=== PATIENT | male | born 1975 | race Caucasian/White ===

== ENCOUNTER 2020-09-20 19:04 | Emergency (ER) | payer SELFPAY ==
--- NOTE | 2020-09-20 19:35 | ER Document Report ---
ED Medical Screen (RME) - General Chief Complaint: Fever Stated Complaint: FEVER,BODY ACHES/CRAMPING/IV DRUG USER Time Seen by Provider: 09/20/20 19:31 Primary Care Provider: CRISTINA GAO MD [Primary Care Provider] - Follow up as needed Mode of Arrival: Ambulatory Information source: Patient Notes: 44-year-old male presented to ED for complaint of body aches fever intermittently cough congestion that comes and goes for the last couple weeks. He is here with his girlfriend who has similar symptoms. He and his girlfriend both state they have used heroin today at 130 and meth 3 to 4 days ago. He states every time he starts coming down off the drugs he also feels like he is getting sick again. He states a friend of theirs was just in [facility] with some type of bladder infection and spent 6 weeks in the hospital. He states that his girlfriend shared needles with this patient and he shared needles with his girlfriend. They are just concerned that they have some type of infection. I have greeted and performed a rapid initial assessment of this patient. A comprehensive ED assessment and evaluation of the patient, analysis of test results and completion of medical decision making process will be conducted by an additional ED providers. TRAVEL OUTSIDE OF THE [place] IN LAST 30 DAYS: No - Related Data Allergies/Adverse Reactions: No Known Allergies Allergy (Unverified 07/04/12 12:58) Past Medical History Musculoskeltal Medical History: Reports Hx Musculoskeletal Deformity, Reports Hx Musculoskeletal Trauma Psychiatric Medical History: Reports: Hx Anxiety, Hx Depression Traumatic Medical History: Reports: Hx Fractures - Immunizations Immunizations up to date: Yes Hx Diphtheria, Pertussis, Tetanus Vaccination: Yes - 4 years ago Physical Exam - Vital signs Vitals: Temp 99.3 F 09/20/20 19:33 Course - Vital Signs Vital signs: Temp Pulse Resp BP Pulse Ox 99.3 F 112 H 22 H 119/73 99 09/20/20 19:35 09/20/20 19:35 09/20/20 19:35 09/20/20 19:35 09/20/20 19:35 Doctor's Discharge - Discharge Referrals: CRISTINA GAO MD [Primary Care Provider] - Follow up as needed
[2020-09-20 21:12] LABS: ABSOLUTE BASOPHILS # (AUTO) 0.1 10^3/uL (0.0-0.2); ABSOLUTE EOSINOPHILS # (AUTO) 0.1 10^3/uL (0.0-0.6); ABSOLUTE MONOCYTES (AUTO) 0.7 10^3/uL (0.1-1.4); ABSOLUTE NEUT (AUTO) 5.5 10^3/uL (1.7-8.2); BASOPHILS % (AUTO) 1.3 % (0-2); EOSINOPHILS % (AUTO) 1.4 % (0-6); HEMATOCRIT 37.9 % (37.9-51.0); MEAN CORPUSCULAR HEMOGLOBIN 29.1 pg (27.0-33.4); MEAN CORPUSCULAR HGB CONC 34.3 g/dL (32.0-36.0); MEAN CORPUSCULAR VOLUME 85 fl (80-97); MONOCYTES % (AUTO) 8.1 % (3-13); PLATELET COUNT 282 10^3/uL (150-450); RED BLOOD COUNT 4.47 10^6/uL (4.35-5.55); RED CELL DISTRIBUTION WIDTH 14.8 % (11.5-14.0); SEGMENTED NEUTROPHILS % (AUTO) 65.2 % (42-78); TOTAL CELLS COUNTED % (AUTO) 100 %; WHITE BLOOD COUNT 8.5 10^3/uL (4.0-10.5)
[2020-09-20 21:30] LABS: A TYPE INFLUENZA AG NEGATIVE (NEGATIVE); B INFLUENZA AG NEGATIVE (NEGATIVE)
[2020-09-20 21:36] LABS: ALBUMIN 3.6 g/dL (3.5-5.0); ALKALINE PHOSPHATASE 85 U/L (38-126); ANION GAP 10 (5-19); ASPARTATE AMINO TRANSFERASE 42 U/L (17-59); BILIRUBIN,DIRECT 0.1 mg/dL (0.0-0.4); BILIRUBIN,TOTAL 0.4 mg/dL (0.2-1.3); BLOOD UREA NITROGEN 13 mg/dL (7-20); CALCIUM 8.8 mg/dL (8.4-10.2); CARBON DIOXIDE 27 mmol/L (22-30); CHLORIDE 100 mmol/L (98-107); GLUCOSE 80 mg/dL (75-110); POTASSIUM 4.6 mmol/L (3.6-5.0); TOTAL PROTEIN 7.2 g/dL (6.3-8.2)
[2020-09-20 21:38] LABS: ALCOHOL < 10 mg/dL (NONE DETECTED)
[2020-09-20 21:59] LABS: APPEARANCE,URINE SLIGHTLY-CLOUDY; BILIRUBIN,URINE NEGATIVE (NEGATIVE); COLOR,URINE YELLOW; GLUCOSE, URINE NEGATIVE (NEGATIVE); KETONES,URINE NEGATIVE (NEGATIVE); LEUKOCYTE ESTERASE,URINE LARGE (NEGATIVE); NITRITE,URINE NEGATIVE (NEGATIVE); PROTEIN,URINE NEGATIVE (NEGATIVE); URINE SPECIFIC GRAVITY 1.012
--- NOTE | 2020-09-20 22:18 | RADIOLOGY REPORT (SQ) ---
EXAM DESCRIPTION: XR CHEST 1 VIEW COMPLETED DATE/TME: 09/20/2020 19:35 CLINICAL HISTORY: 44 years, Male, cough fever COMPARISON: November 25, 2012 NUMBER OF VIEWS: 1 TECHNIQUE: Portable AP upright view of the chest was obtained on 2 images at 9:36 PM. LIMITATIONS: Relatively overexposed lungs. FINDINGS: The heart size is normal. Lungs appear clear. There is no evidence of pleural effusion or pneumothorax. No definite acute bony abnormality is seen. IMPRESSION: No acute abnormality as above. copyright 2010 [employer]- All Rights Reserved
[2020-09-20] MEDS ORDERED: NORMAL SALINE 1000 ML 1,000 ML IV ONE (22:43)
[2020-09-20] MEDS ORDERED: KETOROLAC TROMETHAMINE INJ/PF 30 MG/1 ML SDV IV ONE (22:43)
--- NOTE | 2020-09-20 23:50 | ER Document Report ---
ED Fever - General Chief Complaint: Flu Symptoms Stated Complaint: FEVER,BODY ACHES/CRAMPING/IV DRUG USER Time Seen by Provider: 09/20/20 19:31 Primary Care Provider: CRISTINA GAO MD [Primary Care Provider] - Follow up as needed Mode of Arrival: Ambulatory Notes: 44-year-old male patient presents emergency department chief complaint of body aches and intermittent fever over the last 2 weeks. He states that he is an IV drug user, the last time he used was out today at 130. He states he uses meth and heroin. He is concerned because he has been sharing needles with his girlfriend and her friend, her friend apparently was admitted for some type of blood infection to [facility] a few weeks ago. He is concerned that him and his girlfriend may have a similar blood infection. TRAVEL OUTSIDE OF THE [place] IN LAST 30 DAYS: No - Related Data Allergies/Adverse Reactions: No Known Allergies Allergy (Unverified 07/04/12 12:58) Past Medical History - General Information source: Patient - Social History Smoking Status: Current Every Day Smoker Chew tobacco use (# tins/day): No Frequency of alcohol use: None Drug Abuse: Heroin, Methamphetamine Family History: Reviewed & Not Pertinent Musculoskeletal Medical History: Reports Hx Musculoskeletal Deformity, Reports Hx Musculoskeletal Trauma Psychiatric Medical History: Reports: Hx Anxiety, Hx Depression Traumatic Medical History: Reports: Hx Fractures - Immunizations Immunizations up to date: Yes Hx Diphtheria, Pertussis, Tetanus Vaccination: Yes - 4 years ago Review of Systems - Review of Systems Constitutional: Chills, Fever Cardiovascular: Chest pain Gastrointestinal: Nausea -: Yes All other systems reviewed and negative Physical Exam - Vital signs Vitals: Temp 99.3 F 09/20/20 19:33 - Notes Notes: PHYSICAL EXAMINATION: GENERAL: Thin, appears to be stated age, no acute distress noted HEAD: Atraumatic, normocephalic. EYES: Pupils equal round and reactive to light, extraocular movements intact, sclera anicteric, conjunctiva are normal. ENT: Nares patent, oropharynx clear without exudates. Moist mucous membranes. NECK: Normal range of motion, supple without lymphadenopathy LUNGS: Breath sounds clear to auscultation bilaterally and equal. No wheezes rales or rhonchi. HEART: Regular rate and rhythm without murmurs ABDOMEN: Soft, nontender, nondistended abdomen. No guarding, no rebound. No masses appreciated. Musculoskeletal: Normal range of motion, no pitting or edema. No cyanosis. NEUROLOGICAL: Cranial nerves grossly intact. Normal speech, normal gait. Normal sensory, motor exams PSYCH: Normal mood, normal affect. SKIN: Tract cano bilaterally to upper extremities. Course - Re-evaluation Re-evalutation: Patient appears well, nontoxic. Chest x-ray is negative for any obvious acute findings such as pneumonia. Labs were obtained. No leukocytosis, chemistries normal. Urine does show evidence of infection. Chlamydia and gonorrhea testing pending. Patient will be treated for infection in urine. Unfortunately nursing staff had a difficult time with drawing patient's blood and starting IV. Blood culture is pending. Lactic acid is still pending. Patient does report feeling some improvement with IV fluids and IV Toradol. He will likely be discharged home once these are completed. Patient reevaluated again. He does continue to report feeling improved. Lactic acid is normal. Patient will be discharged home at this time. I stressed the urgency of strict ED return precautions. I also asked him to please make sure nursing staff has a good accurate phone number for him in case his blood cultures are abnormal. I told him that if blood cultures are abnormal he will need to come back to the hospital. Patient verbalizes understanding and agreement with same. - Vital Signs Vital signs: Temp Pulse Resp BP Pulse Ox 100.1 F 104 H 18 133/81 H 98 09/20/20 22:56 09/20/20 22:56 09/20/20 22:56 09/20/20 22:56 09/20/20 22:56 - Laboratory Result Diagrams: 09/20/20 20:57 09/20/20 20:57 Laboratory results interpreted by me: 09/20/20 09/20/20 09/20/20 20:57 20:57 21:10 Hgb 13.0 L RDW 14.8 H Sodium 136.9 L Urine Urobilinogen 2.0 H Ur Leukocyte Esterase LARGE H Discharge - Discharge Clinical Impression: IVDU (intravenous drug user), Pyuria Fever Qualifiers: Fever type: unspecified Qualified Code(s): R50.9 - Fever, unspecified Condition: Stable Disposition: HOME, SELF-CARE Instructions: COVID-19 Guidance for Persons Under Investigation Additional Instructions: Your lab work today was reassuring. Your chest x-ray did not show any evidence of pneumonia. Your urine had signs of infection, you were treated for the most common causes of this including sexually transmitted diseases. Your blood cult ures, urine culture and COVID-19 test are still pending. You will be contacted with your remaining test results, please quarantine while you are awaiting your COVID-19 test, see additional instructions on form/handout. Avoid any illegal/recreational drugs, these are extremely dangerous and chiki nued use will lead to your . Return if you worsen including difficulty breathing, chest pain, vomiting, spiking fevers, or any other concerning or worsening symptoms. Referrals: CRISTINA GAO MD [Primary Care Provider] - Follow up as needed
[2020-09-20 23:53] LABS: URINE AMPHETAMINES SCREEN NEGATIVE; URINE BARBITURATES SCREEN NEGATIVE; URINE BENZODIAZEPINES SCREEN NEGATIVE; URINE COCAINE SCREEN NEGATIVE; URINE MARIJUANA (THC) SCREEN NEGATIVE; URINE METHADONE SCREEN NEGATIVE; URINE PHENCYCLIDINE SCREEN NEGATIVE
[2020-09-21] MEDS ORDERED: KETOROLAC TROMETHAMINE INJ/PF 30 MG/1 ML SDV ONE (01:07)
[2020-09-21] MEDS ORDERED: METRONIDAZOLE 500 MG TABLET PO ONE (01:19)
[2020-09-21] MEDS ORDERED: AZITHROMYCIN 250 MG TABLET PO ONE (01:19)
[2020-09-21] MEDS ORDERED: CEFTRIAXONE 1 GM/D5W RTU 1 GM/50 ML RTUPB IV ONE (01:19)
[2020-09-21] MEDS ORDERED: LIDOCAINE 1% INJ-PF (10 MG/ML) 30 ML SDV IM ONE (02:33)
[2020-09-21] MEDS ORDERED: CEFTRIAXONE INJ 1000 MG VIAL IM ONE (02:33)
[2020-09-21 02:49] LABS: CHLAM PCR NOT DETECTED (NOT DETECT)
[2020-09-21 03:22] VITALS: BP 134/92
== END 2020-09-21 03:00 | disposition home or self-care (01) ==
LOC: ER 19:04
DX: N39.0 Urinary tract infection, site not specified (principal); R50.9 Fever, unspecified; F11.10 Opioid abuse, uncomplicated; F15.10 Other stimulant abuse, uncomplicated; F17.200 Nicotine dependence, unspecified, uncomplicated; Z20.828 Contact with and (suspected) exposure to other viral communicable diseases
CPT/HCPCS: 99284; 96372; 96361; 96374; 36415; 87040; 87070; 87086; 87880; 80307 ×2; 83605; 85025; 87635; 87077; 80053; 81001; 87491; 87591; 87804; 71045; J3490; J1885; J0696; J7030; C9803